=== PATIENT | female | born 1955 | race Caucasian/White ===

== ENCOUNTER 2023-05-02 13:40 | Inpatient (IN) | payer OTHER, MEDICARE ==
[~2023-05-02] VITALS: Ht 162.6 cm; Wt 97.7 kg
[2023-05-02 15:10] LABS: BASOPHILS % (AUTO) 0.4 % (0-1); EOSINOPHILS % (AUTO) 0.7 % (0-6); HEMATOCRIT 41.9 % (35.0-45.0); HEMOGLOBIN 13.6 g/dl (12.0-16.0); LYMPHOCYTES # (AUTO) 1.3 X10'3 (1.1-4.8); LYMPHOCYTES % (AUTO) 19.9 % (21-51); MEAN CORPUSCULAR HEMOGLOBIN 29.8 PG (27.0-31.0); MEAN CORPUSCULAR HGB CONC 32.5 g/dL (33.0-36.5); MEAN CORPUSCULAR VOLUME 91.6 FL (78-98); MEAN PLATELET VOLUME 8.6 FL (7.4-10.4); MONOCYTES # (AUTO) 0.6 X10'3 (0-0.9); MONOCYTES % (AUTO) 8.6 % (2-12); NEUTROPHILS # (AUTO) 4.7 X10'3 (1.8-7.7); NEUTROPHILS % (AUTO) 70.4 % (42-75); PLATELET COUNT 221 X10'3 (140-440); RED BLOOD COUNT 4.57 X10'6 (4.20-5.60); RED CELL DISTRIBUTION WIDTH 15.1 % (11.5-14.5); WHITE BLOOD COUNT 6.7 X10'3 (4.5-11.0)
[2023-05-02 15:24] LABS: ALANINE AMINOTRANSFERASE 26 U/L (12-78); ALBUMIN 3.4 G/DL (3.4-5.0); ALBUMIN/GLOBULIN RATIO 1.1 (1.1-1.5); ALKALINE PHOSPHATASE 59 IU/L (46-116); ANION GAP 9 (8-16); ASPARTATE AMINO TRANSFERASE 20 U/L (10-37); BILIRUBIN,TOTAL 0.3 MG/DL (0.1-1.0); BLOOD UREA NITROGEN 13 MG/DL (7-18); BUN/CREATININE RATIO 15.3 (10.0-20.0); CHLORIDE 105 MMOL/L (99-107); CREATININE 0.85 MG/DL (0.40-0.90); GLUCOSE 111 MG/DL (70-104); POTASSIUM 3.5 MMOL/L (3.5-5.1); SODIUM 140 MMOL/L (135-145); TOTAL CARBON DIOXIDE 26.2 MMOL/L (24-32); TOTAL PROTEIN 6.4 G/DL (6.4-8.2); eGFR 66 ML/MIN
[2023-05-02 15:42] LABS: MAGNESIUM 2.3 MG/DL (1.5-2.4)
[2023-05-02] MEDS ORDERED: magnesium Cl slow-release 64mg tablet PO PRN (17:30)
[2023-05-02] MEDS ORDERED: HYDROcodone/acetaminophen 5mg/325mg tablet PO PRN (17:30)
[2023-05-02] MEDS ORDERED: morphine 2 MG/ML inj. syringe IV PRN ×2 (17:30)
[2023-05-02] MEDS ORDERED: potassium Cl 20 mEq SR tablet PO PRN ×2 (17:30)
[2023-05-02] MEDS ORDERED: potassium Cl 40MEQ/1/2NS 520ml 520 ML IV PRN (17:30)
[2023-05-02] MEDS ORDERED: ondansetron/PF 4mg/2ml inj IV PRN (17:30)
[2023-05-02] MEDS ORDERED: acetaminophen 325mg tablet PO PRN ×2 (17:30)
[2023-05-02] MEDS ORDERED: magnesium 2GM in 50ml NS 50 ML IV PRN (17:30)
[2023-05-02] MEDS ORDERED: HYDROcodone/acetaminophen 10/325mg tab PO PRN (17:30)
[2023-05-02] MEDS ORDERED: magnesium 4gm in 100ml NS 100 ML IV PRN (17:30)
[2023-05-02] MEDS ORDERED: SERT-433 PO (17:38)
[2023-05-02] MEDS ORDERED: MELA3TAB39 PO (17:38)
[2023-05-02] MEDS ORDERED: FIBER PO (17:38)
[2023-05-02] MEDS ORDERED: CARB30DR9 EACHEYE (17:38)
[2023-05-02] MEDS ORDERED: APIX5TAB3 PO (17:38)
[2023-05-02] MEDS ORDERED: LIDO700A32 TOP (17:38)
[2023-05-02] MEDS ORDERED: HYDR-3686 PO (17:38)
[2023-05-02 18:06] LABS: D-DIMER < 0.19 MG/L FEU (0-0.50)
[2023-05-02] MEDS ORDERED: hydrOXYzine 25 MG tablet PO PRN (18:15)
[2023-05-02] MEDS ORDERED: CARBOXYMETHYLCELLULOSE SODIUM EACHEYE PRN (18:15)
[2023-05-02] MEDS ORDERED: PEG 400/HYPROMELLOSE/GLYCERIN 15ml bottle EACHEYE PRN (18:40)
[2023-05-02] MEDS: pantoprazole 40mg Tablet.DR PO SCH ×2 (19:02→21:47)
[2023-05-02] MEDS: normal saline 1000ml 1,000 ML IV SCH (19:02)
[2023-05-02] MEDS ORDERED: enoxaparin 40mg/0.4ml syringe SQ SCH (20:00)
[2023-05-02 20:08] LABS: CLARITY,URINE CLEAR (Clear); COLOR,URINE STRAW (Yellow); GLUCOSE, URINE NEGATIVE (Neg); KETONES,URINE NEGATIVE (Neg); LEUKOCYTE ESTERASE ,URINE NEGATIVE (Neg); NITRITES, URINE NEGATIVE (Neg); OCCULT BLOOD,URINE NEGATIVE (Neg); PH,URINE 5.5 (4.8-8.0); PROTEIN,URINE NEGATIVE (Neg); UROBILINOGEN,URINE 0.2 E.U/dL (0.2-1.0)
[2023-05-02 20:11] LABS: UA COLLECTION TYPE CLN CATCH MIDSTREAM
[2023-05-02] MEDS ORDERED: Melatonin 3mg tablet PO SCH (21:00)
[2023-05-02] MEDS ORDERED: temazepam 15mg capsule PO PRN (21:00)
[2023-05-02] MEDS: diltiazem 30mg tablet PO SCH (21:46)
[2023-05-02] MEDS: apixaban 5mg tablet PO SCH (21:47)
[2023-05-02 23:28] VITALS: PULSE 57; RESP 16; O2SAT 89
[2023-05-03] VITALS (12 sets, daily range): BP systolic 99–113; BP diastolic 51–69; PULSE 58–86; RESP 14–18; TEMP 97.9–98.1; O2SAT 96–97
[2023-05-03] MEDS: diltiazem 30mg tablet PO SCH ×3 (02:00→14:41)
--- NOTE | 2023-05-03 02:24 | NUR ---
Rec'd report from GURMEET Mcguire in the ER.
--- NOTE | 2023-05-03 02:41 | NUR ---
ARRIVED FROM ER ON A GURNEY, WAS ABLE TO AMBULATE TO BE W/O PROBLEM
[2023-05-03 06:12] LABS: EOSINOPHILS # (AUTO) 0.1 X10'3 (0-0.9); MEAN PLATELET VOLUME 8.6 FL (7.4-10.4)
[2023-05-03 06:15] LABS: BASOPHILS % (AUTO) 0.5 % (0-1); EOSINOPHILS % (AUTO) 1.6 % (0-6); HEMATOCRIT 39.4 % (35.0-45.0); LYMPHOCYTES # (AUTO) 1.2 X10'3 (1.1-4.8); LYMPHOCYTES % (AUTO) 18.5 % (21-51); MEAN CORPUSCULAR HEMOGLOBIN 30.6 PG (27.0-31.0); MEAN CORPUSCULAR HGB CONC 32.9 g/dL (33.0-36.5); MEAN CORPUSCULAR VOLUME 92.9 FL (78-98); MONOCYTES # (AUTO) 0.7 X10'3 (0-0.9); MONOCYTES % (AUTO) 10.7 % (2-12); NEUTROPHILS # (AUTO) 4.5 X10'3 (1.8-7.7); NEUTROPHILS % (AUTO) 68.7 % (42-75); PLATELET COUNT 204 X10'3 (140-440); RED BLOOD COUNT 4.24 X10'6 (4.20-5.60); RED CELL DISTRIBUTION WIDTH 15.1 % (11.5-14.5); WHITE BLOOD COUNT 6.6 X10'3 (4.5-11.0)
[2023-05-03 06:17] LABS: ALANINE AMINOTRANSFERASE 18 U/L (12-78); ALBUMIN 2.9 G/DL (3.4-5.0); ALKALINE PHOSPHATASE 58 IU/L (46-116); ANION GAP 10 (8-16); ASPARTATE AMINO TRANSFERASE 16 U/L (10-37); BILIRUBIN,TOTAL 0.2 MG/DL (0.1-1.0); BLOOD UREA NITROGEN 18 MG/DL (7-18); BUN/CREATININE RATIO 19.4 (10.0-20.0); CALCIUM 8.3 MG/DL (8.5-10.1); CHLORIDE 106 MMOL/L (99-107); CREATININE 0.93 MG/DL (0.40-0.90); GLUCOSE 102 MG/DL (70-104); SODIUM 140 MMOL/L (135-145); TOTAL CARBON DIOXIDE 23.8 MMOL/L (24-32); TOTAL PROTEIN 5.7 G/DL (6.4-8.2); eGFR 60 ML/MIN
--- NOTE | 2023-05-03 06:29 | NUR ---
Problems reprioritized. Patient report given, questions answered & plan of care reviewed with GURMEET Baker.
--- NOTE | 2023-05-03 06:32 | NUR ---
Patient in room PCU 3015. I have received report from Andie and had the opportunity to ask questions and assume patient care.
[2023-05-03] MEDS ORDERED: sertraline 25mg tablet PO SCH (08:00)
[2023-05-03] MEDS ORDERED: calcium polycarbophil 625mg tablet PO SCH (08:00)
[2023-05-03] MEDS ORDERED: LIDOcaine 5% patch TP SCH (08:00)
[2023-05-03] MEDS: normal saline 1000ml 1,000 ML IV SCH (08:07)
[2023-05-03] MEDS: apixaban 5mg tablet PO SCH (08:08)
[2023-05-03] MEDS: pantoprazole 40mg Tablet.DR PO SCH (08:08)
[2023-05-03] MEDS ORDERED: regadenoson 0.4mg/5ml syringe IV ONE (09:00)
[2023-05-03] MEDS ORDERED: aminophylline inj. 0 ML IV ONE (09:06)
[2023-05-03] MEDS ORDERED: PANT40TA54 PO (14:53)
[2023-05-03] MEDS ORDERED: DILT30TA2 PO (14:56)
--- NOTE | 2023-05-03 18:09 | NUR ---
Patient discharged back to the [facility] with all her belongings. DCed telebox and IV [facility]. Patient had no c/o pain or discomfort at time of discharge and was stable for transport. She left in a medical transport with transport personel. All discharge paperwork given and patient stated understanding.
== END 2023-05-03 17:16 | disposition home or self-care (01) | DRG 313 ==
LOC: ER 13:41 → ED HOLD 17:34 → PCU 3S 05-03 02:30
PROVIDERS: ADMIT Internal Medicine; ATTEND Internal Medicine
PROC: 4A02XM4 Measurement of Cardiac Total Activity, External Approach (ICD-10-PCS; principal; 2023-05-03)
PROC: 3E073KZ Introduction of Other Diagnostic Substance into Coronary Artery, Percutaneous Approach (ICD-10-PCS; 2023-05-03)
DX: R07.89 Other chest pain (principal); I48.91 Unspecified atrial fibrillation; J44.9 Chronic obstructive pulmonary disease, unspecified; G47.30 Sleep apnea, unspecified; K58.9 Irritable bowel syndrome, unspecified; I10 Essential (primary) hypertension; T46.0X5A Adverse effect of cardiac-stimulant glycosides and drugs of similar action, initial encounter; M19.90 Unspecified osteoarthritis, unspecified site; Z66 Do not resuscitate; F41.9 Anxiety disorder, unspecified; F32.A Depression, unspecified; E78.00 Pure hypercholesterolemia, unspecified; Z88.2 Allergy status to sulfonamides; Z88.8 Allergy status to other drugs, medicaments and biological substances; Z91.018 Allergy to other foods; Z87.891 Personal history of nicotine dependence; Z86.16 Personal history of COVID-19; Y92.89 Other specified places as the place of occurrence of the external cause
CPT/HCPCS: 36415; 71045; 78452; 80053; 80162; 81003; 83735; 83880; 84484; 85025; 85379; 87081; 93005; 93017; 93306; 94760; 99285; A9500; G0378; J0280; J1650; J2405; J2785; J7030

== ENCOUNTER 2024-02-21 12:57 | Outpatient (CLI) | payer OTHER, MEDICARE ==
[~2024-02-21] VITALS: Ht 162.6 cm; Wt 93.0 kg
[~2024-02-21 12:57] MED LIST: APIX5TAB3 PO; CARB30DR9 EACHEYE; DILT30TA2 PO; FIBER PO; HYDR-3686 PO; LIDO700A32 TOP; MELA3TAB39 PO; PANT40TA54 PO; SERT-433 PO
[2024-02-21] MEDS ORDERED: albuterol 2.5 MG/3 ML nebule NEB ONE (13:20)
[2024-02-21 13:33] VITALS: PULSE 119; RESP 16; O2SAT 96
== END 2024-02-21 23:59 | disposition home or self-care (01) ==
LOC: RT 12:57
PROVIDERS: ATTEND Chiropractor
DX: J44.9 Chronic obstructive pulmonary disease, unspecified (principal)
CPT/HCPCS: 71046; 94060; 94760